=== PATIENT | female | born 1985 | race Caucasian/White ===

== ENCOUNTER 2017-05-25 20:38 | Emergency (ER) | payer OTHER ==
--- NOTE | 2017-05-25 20:48 | EDPHY ---
H & P Stated Complaint: dizziness, with some visual disturbance for 10 min ,confusion Time Seen by Provider: 05/25/17 20:55 HPI/ROS: CHIEF COMPLAINT: Near syncope, slurred speech HISTORY OF PRESENT ILLNESS: The patient is a 31 y/o female with a remote history of benign arrhythmia and remote migraines (none for 15 years) complaining of acute onset 10-minute episode of near-syncope and slurred speech while sitting in a theater tonight. She describes feeling suddenly dizzy like she would faint and then had difficulty talking and communicating to her friend next to her. She felt like her speech was slurred. She then stood and started walking out of the theater and felt like she momentarily blacked out. Her friend pulled her up and kept walking her out of the theater before sitting her on a bench. She never fell or suffered any injuries. After a few moments she felt her symptoms resolving. She currently feels nauseated, but otherwise normal. She had a syncopal episode when she was 12 that felt similar, but "less significant" than her symptoms today. She denies recent illness or trauma, abdominal pain. She denies seizure history or chance of . She consumed half of a beer tonight prior to this event. REVIEW OF SYSTEMS: A ten point review of systems was performed and is negative with the exception of the items mentioned in the HPI. Past medical history: Migraines with photophobia - last one 15 years ago; irregular heart beat Past surgical history: Denies Family history: Noncontributory Social history: Nonsmoker. Friend at bedside. 4 alcoholic drinks/week. No marijuana use. 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 General Appearance: Alert. Vital signs reviewed. Eyes: Pupils equal and round, no conjunctival injection, no discharge. Anicteric. ENT, Mouth: Mucous membranes are moist, no oropharyngeal erythema or edema. Neck: No lymphadenopathy, supple. Respiratory: Lungs are clear to auscultation; no wheezes, rales, or rhonchi. Cardiovascular: Regular rate and rhythm; no murmur, rub, or gallop. Gastrointestinal: Abdomen is soft and nontender, no masses or organomegaly. Skin: Warm and dry, no rashes on exposed skin, normal color. Back: Nontender to palpation over the thoracolumbar spine. No CVAT. Extremities: No lower extremity edema, no calf tenderness or swelling. Neurological: Alert and oriented. Moving all four extremities easily and equally. Cranial nerves II through XII are examined and are intact (visual acuity not tested). Strength is 5 over 5 bilaterally with testing of all major motor groups. Sensation is intact to light touch over all 4 extremities. Deep tendon reflexes are 2+ in the biceps and knees bilaterally. Gait is normal. Psychiatric: Normal affect. - Personal History LMP (Females 10-55): 8-14 Days Ago Current Tetanus/Diphtheria Vaccine: Yes Current Tetanus Diphtheria and Acellular Pertussis (TDAP): Yes - Medical/Surgical History Hx Asthma: Yes Hx Chronic Respiratory Disease: No Hx Diabetes: No Hx Cardiac Disease: No Hx Renal Disease: No Hx Cirrhosis: No Hx Alcoholism: No Hx HIV/AIDS: No Hx Splenectomy or Spleen Trauma: No Other PMH: migranes, appy, asthma. left breast bx, - Social History Smoking Status: Never smoked Constitutional: Initial Vital Signs Temperature (C) 36.9 C 05/25/17 20:39 Heart Rate 82 05/25/17 20:39 Respiratory Rate 16 05/25/17 20:39 Blood Pressure 109/78 05/25/17 20:39 O2 Sat (%) 97 05/25/17 20:39 O2 Delivery Mode Room Air Allergies/Adverse Reactions: No Known Allergies Allergy (Unverified 05/25/17 20:46) Home Medications: Medication Instructions Recorded Albuterol 05/25/17 Medical Decision Making ED Course/Re-evaluation: This is a healthy 31 y/o female with remote history of migraines and reported benign arrhythmia who presents for evaluation following a 10-minute episode of near-syncope and slurred speech. Upon arrival here she feels mildly nauseated, but otherwise asymptomatic. She has a normal neurologic exam. No emergent indication for imaging at this time. She does not have headache. I do not suspect intracranial hemorrhage or complex migraine. The description of this episode does not sound like seizure activity. Plan for IV, labs, EKG, and symptomatic management. 1L IV NS and 4mg IV Zofran ordered. Patient declined Zofran. The 12 lead EKG was interpreted by myself. Sinus mechanism rate 65. See hard copy and/or "tracemaster" electronic copy for interpretation. Labs and orthostatics have been reviewed. No concerning etiology for syncope found. Patient re-evaluated at 10:30 p.m.. She is sitting up in bed laughing and conversant. She feels totally fine. We discussed the diagnosis of vasovagal syncope. She is comfortable returning home and will follow up with her primary care physician. Danger signs were reviewed with her. Differential Diagnosis: Syncope including but not limited to vasovagal syncope, arrhythmia, dehydration , and blood loss. - Data Points Laboratory Results: Laboratory Results 05/25/17 20:48 05/25/17 20:48 Medications Given: Discontinued Medications Sodium Chloride (Ns) 1,000 mls @ 0 mls/hr IV ONCE ONE PRN Reason: Wide Open Stop: 05/25/17 20:58 Last Admin: 05/25/17 20:59 Dose: 1,000 mls Ondansetron HCl (Zofran) 4 mg IVP EDNOW ONE Stop: 05/25/17 20:58 Last Admin: 05/25/17 22:12 Dose: Not Given Departure - Departure Disposition: Home, Routine, Self-Care Clinical Impression: Syncope Condition: Good Instructions: Syncope (ED) Additional Instructions: Follow up with Dr. Law. Return if you have another similar episode, and irregular heartbeat, any new or concerning symptoms. Referrals: Mima Law MD [Primary Care Provider] - As per Instructions Report Scribed for: Majo Andrade Report Scribed by: Stormy Reilly Date of Report: 05/25/17 Time of Report: 21:14 Physician Review and Approval Statement: 05/25/17 20:48 Portions of this note were transcribed by the registered medical transcriptionist. I, Dr. Majo Andrade, personally performed the history, physical exam, and medical decision- making; and confirmed the accuracy of the information in the transcribed note.
[2017-05-25] MEDS ORDERED: ONDANSETRON 4 MG/2 ML VIAL ONE (20:53)
[2017-05-25] MEDS ORDERED: NS 1,000 ML IV ONE (20:57)
--- NOTE | 2017-05-25 20:58 | CPEKG ---
Heart Rate: 65 RR Interval: 923 P-R Interval: 180 QRSD Interval: 76 QT Interval: 384 QTC Interval: 400 P [place]: 63 QRS [place]: 67 T Wave [place]: 40 EKG Severity - NORMAL ECG - EKG Impression: SINUS RHYTHM Electronically Signed By: Majo Andrade 25-May-2017 22:57:19
[2017-05-25] MEDS: ONDANSETRON 4 MG/2 ML VIAL IVP ONE ×2 (20:59→22:12)
[2017-05-25 21:21] LABS: PLATELET COUNT 308 10^3/uL (150-400)
[2017-05-25 22:09] VITALS: BP 118/71
== END 2017-05-25 22:35 | disposition home or self-care (01) ==
DX: R55 Syncope and collapse (principal); J45.909 Unspecified asthma, uncomplicated
CPT/HCPCS: 82947-QW; J2405